=== PATIENT | female | born 1960 | race Caucasian/White ===

== ENCOUNTER → 2022-04-13 13:02 | Outpatient (CLI) | payer OTHER, SELFPAY | PROVIDERS: PCP Student in an Organized Health Care Education/Training Program; Referring Provider Internal Medicine Hematology & Oncology; Visit Provider Family Medicine | DX: L59.8 Other specified disorders of the skin and subcutaneous tissue related to radiation (principal); N60.31 Fibrosclerosis of right breast; N64.4 Mastodynia; R22.2 Localized swelling, mass and lump, trunk; J45.909 Unspecified asthma, uncomplicated; H91.91 Unspecified hearing loss, right ear; Z86.000 Personal history of in-situ neoplasm of breast; Z92.3 Personal history of irradiation | CPT/HCPCS: 99204; 99212 ==

== ENCOUNTER → 2023-12-28 13:19 | Outpatient (CLI) | payer OTHER, SELFPAY ==
--- NOTE | 2023-12-28 13:21 | DI.ECHO.S_ITS ---
[facility] +---------+ : : [address] : : : : [id number] : : : : Phone: [phone]---------+ Echocardiogram Report + + :Name: MAXINE TOUSSAINT Study Date: 12/28/2023 Height: 61 in : :[facility] ReadingLocation: Weight: 145 lb : : Gender: Female BSA: 1.6 m2 : :: 1960 Age: 63 yrs BP: 136/76 mmHg: :Reason For Study: MYOCARDIAL INFARCTION : :Ordering Physician: NEGRO, : :DORY Veloz Performed By: Eleanor Akers : :Referring: DORY SIMMONS : + + Interpretation Summary The ejection fraction is estimated to be 55-60%. Diastolic parameters suggest probable normal left ventricular diastolic function and normal filling pressures. The right ventricle is normal in size and function. No significant valvular abnormalities. Pulmonary artery pressures cannot be estimated because of the lack of a measurable TR jet velocity but the IVC suggests a CVP of around 3 mmHg. Procedure: A two-dimensional transthoracic echocardiogram with color flow and Doppler was performed. The study quality was technically adequate. There is no prior echocardiogram noted for this patient. The patient was in sinus rhythm with heart rates between 70-84 bpm during the exam. Left Ventricle: The left ventricle is normal in size and wall thickness. The ejection fraction is estimated to be 55-60%. Diastolic parameters suggest probable normal left ventricular diastolic function and normal filling pressures. Right Ventricle: The right ventricle is normal in size and function. Atria: The left atrial size is normal. Right atrial size is normal. There is no Doppler evidence for an interatrial shunt. Mitral Valve: The mitral valve is normal. There is mild mitral annular calcification. There is trace mitral regurgitation. Aortic Valve: The aortic valve is trileaflet. The aortic valve opens well. There is no aortic valve stenosis. No aortic regurgitation is present. Tricuspid Valve: The tricuspid valve is normal in structure and function. There is trace tricuspid regurgitation. Pulmonary artery pressures cannot be estimated because of the lack of a measurable TR jet velocity but the IVC suggests a CVP of around 3 mmHg. Pulmonic Valve: The pulmonic valve is not well seen, but is grossly normal. There is no pulmonic valvular regurgitation. Great Vessels: The aortic root is normal size. The dimensions of the ascending aorta are normal. The IVC is of normal diameter and collapses greater than 50% with a sniff. This suggests a low right atrial pressure of 3 mm Hg. Pericardium/ Pleura There is no pericardial effusion. There is no pleural effusion. MMode/2D Measurements & Calculations LVIDd: 3.9 cm LVOT diam: 2.0 cm LVIDs: 2.7 cm Ao root diam: 3.2 cm FS: 31.3 % asc Aorta Diam: 3.1 cm EPSS: 0.40 cm Ao Arch Diam (Prox Trans): 3.2 cm IVSd: 0.82 cm LVPWd: 0.83 cm LV lee. diameter/BSA (cm/m^2): 2.4 LV sys. diameter/BSA (cm/m^2): 1.6 LA A2 area: 17.3 cm2 RA long axis: 4.3 cm LA A4 area: 15.3 cm2 RA area: 11.6 cm2 LA length (vol): 4.9 cm RA vol: 26.4 ml LA vol: 46.2 ml RA : 16.0 ml/m2 LA vol index: 28.0 ml/m2 IVC diam: 1.1 cm RVD1 (basal): 3.5 cm RVD2 (mid): 2.2 cm TAPSE: 1.8 cm Doppler Measurements & Calculations Ao V2 max: 161.9 cm/sec LVOT Max Andrew: 110.9 cm/sec Ao V2 mean: 119.7 cm/sec LV V1 max P.9 mmHg Ao max P.5 mmHg LV V1 VTI: 24.1 cm Ao mean P.1 mmHg MARTA(I,D): 2.0 cm2 Ao V2 VTI: 36.4 cm MARTA(V,D): 2.1 cm2 sev ratio: 0.66 MARTA indexed to BSA (cm^2/m^2): 1.2 MV E max andrew: 100.0 cm/sec PA V2 max: 94.7 cm/sec MV A max andrew: 101.3 cm/sec PA V2 mean: 70.4 cm/sec MV E/A: 0.99 PA mean P.2 mmHg Med Peak E' Andrew: 7.3 cm/sec PA pr(Accel): 43.0 mmHg E/E' med: 13.7 Lat Peak E' Andrew: 8.9 cm/sec E/E' lat: 11.2 E/e' average: 12.5 MV dec time: 0.22 sec SVLVOT): 72.2 ml Reading Physician:04:50 PM
== END ==
PROVIDERS: PCP Student in an Organized Health Care Education/Training Program; Referring Provider Internal Medicine Cardiovascular Disease; Visit Provider Internal Medicine Cardiovascular Disease
DX: I34.81 Nonrheumatic mitral (valve) annulus calcification (principal); I25.2 Old myocardial infarction; R07.9 Chest pain, unspecified
CPT/HCPCS: 93306

== ENCOUNTER → 2025-04-11 12:55 | Outpatient (CLI) | payer BC, SELFPAY ==
--- NOTE | 2025-04-11 12:58 | DI.RAD.S_ITS ---
PROCEDURE: FL UPPER GI SMALL BOWEL INDICATIONS: DYSPHAGIA COMPARISON: None. FINDINGS AND IMPRESSION: Moderate fecal loading and cholecystectomy clips seen on computer aided drafter images. Moderate hiatal hernia is seen. There is narrowing just above the hiatal hernia. There was delayed passage of a barium tablet through this region, with passage following 5 minutes and water ingestion. Moderate gastroesophageal reflux is seen, to the level of the mid thorax, with provocative maneuvers. There is also [id number] degree of esophageal dysmotility with tertiary contractions seen. Endoscopy follow-up is suggested. Large bowel was seen on small bowel follow-through by 90 minutes. Dictated by: Naresh Padilla M.D. on 04/11/2025 at 16:36 Approved by: Naresh Padilla M.D. on 04/11/2025 at 16:38
== END ==
PROVIDERS: PCP Student in an Organized Health Care Education/Training Program; Referring Provider Student in an Organized Health Care Education/Training Program; Visit Provider Radiology Diagnostic Radiology
DX: R13.10 Dysphagia, unspecified (principal); Z90.49 Acquired absence of other specified parts of digestive tract; K44.9 Diaphragmatic hernia without obstruction or gangrene; K21.9 Gastro-esophageal reflux disease without esophagitis; K22.9 Disease of esophagus, unspecified
CPT/HCPCS: 74240; 74248